=== PATIENT | male | born 1950 | race Caucasian/White ===

== ENCOUNTER 2023-01-09 13:57 | Outpatient (RCR) | payer MEDICARE ==
[~2023-01-09] VITALS: Ht 185.4 cm; Wt 88.9 kg
== END 2023-02-01 | disposition home or self-care (01) ==
LOC: CARDREHAB
DX: Z48.812 Encounter for surgical aftercare following surgery on the circulatory system (principal); Z95.5 Presence of coronary angioplasty implant and graft; I25.2 Old myocardial infarction

== ENCOUNTER 2023-02-06 08:00 | Outpatient (RCR) | payer MEDICARE | END 2023-03-04 | disposition home or self-care (01) | LOC: CARDREHAB | DX: Z48.812 Encounter for surgical aftercare following surgery on the circulatory system (principal); Z95.5 Presence of coronary angioplasty implant and graft; I25.2 Old myocardial infarction ==

== ENCOUNTER 2023-03-07 08:15 | Outpatient (RCR) | payer MEDICARE | END 2023-04-04 | disposition home or self-care (01) | LOC: CARDREHAB | DX: Z48.812 Encounter for surgical aftercare following surgery on the circulatory system (principal); I25.2 Old myocardial infarction; I50.9 Heart failure, unspecified ==

== ENCOUNTER 2023-04-06 08:00 | Outpatient (RCR) | payer MEDICARE | END 2023-05-03 | disposition home or self-care (01) | LOC: CARDREHAB | DX: Z48.812 Encounter for surgical aftercare following surgery on the circulatory system (principal); Z95.5 Presence of coronary angioplasty implant and graft; I25.2 Old myocardial infarction ==